=== PATIENT | female | born 1985 | race Caucasian/White ===

== ENCOUNTER → 2018-05-15 | Outpatient (CLI) | payer BC ==
[~2018-05-15] MED LIST: HYDACE5325 PO; IBUP600
== END | disposition home or self-care (01) ==
LOC: PLD 08:14 → LAB SHORT 08:14
DX: N93.8 Other specified abnormal uterine and vaginal bleeding (principal); N85.00 Endometrial hyperplasia, unspecified
CPT/HCPCS: 88305

== ENCOUNTER 2018-05-24 08:04 | Day surgery (SDC) | payer BC ==
[~2018-05-24] VITALS: Ht 165.1 cm; Wt 149.9 kg
[2018-05-24] MEDS ORDERED: METO50ER PO (08:22)
[2018-05-24] MEDS ORDERED: ERGO400 PO (08:23)
[2018-05-24] MEDS ORDERED: Lexapro20 MG PO (08:23)
[2018-05-24] MEDS ORDERED: TRAZ100 PO (08:23)
[2018-05-24] MEDS ORDERED: IRON150C PO (08:23)
[2018-05-24] MEDS ORDERED: Synthroid75 MCG PO (08:25)
[2018-05-24] MEDS ORDERED: ALPR.5 PO (08:25)
--- NOTE | 2018-05-24 08:37 | NUR ---
History, Chart, Medications and Allergies reviewed before start of procedure. Lungs clear T/O to Auscultation. Patient confirms NPO status and agrees with scheduled surgery. Patient States Post-Procedure ride home has been arranged.
--- NOTE | 2018-05-24 11:09 | NUR ---
PATIENT WITH SCANT BLOODY DRAINAGE ON PAD. PAD CHANGED. PT EDUCATION PROVIDED REGARDING WHAT TO EXPECT AT HOME. WILL REPORT TO AZIZA ALCANTARA RN FOR BREAK.
--- NOTE | 2018-05-24 11:33 | NUR ---
Discharge instructions reviewed with patient. Patient verbalizes understanding. Copy given to patient to take home.
--- NOTE | 2018-05-24 11:40 | NUR ---
PT WAS ABLE TO VOID WITHOUT DIFFICULTY. VSS. DRESSED AND Discharged via wheelchair to private car for ride home. CHANGE GAYATHRI PAD, CURRENT PAD HAD MODERATE AMOUNT OF BLOOD SPOTTING ALONG PAD, NOT SATURATED. RX'S GIVEN TO PATIENT ALONG WITH TYLER MITCHELL.
== END 2018-05-24 11:38 | disposition home or self-care (01) ==
LOC: ORSCMMR 08:04 → ORD 08:10 → ORSCMMR 08:10
PROVIDERS: Obstetrics & Gynecology
PROC: 0UDB8ZX Extraction of Endometrium, Via Natural or Artificial Opening Endoscopic, Diagnostic (ICD-10-PCS; principal; 2018-05-24 09:30)
PROC: 0UH97HZ Insertion of Contraceptive Device into Uterus, Via Natural or Artificial Opening (ICD-10-PCS; principal; 2018-05-24 09:30)
DX: N85.02 Endometrial intraepithelial neoplasia [EIN] (principal); N71.9 Inflammatory disease of uterus, unspecified; Z30.430 Encounter for insertion of intrauterine contraceptive device; I10 Essential (primary) hypertension; G47.33 Obstructive sleep apnea (adult) (pediatric); F17.210 Nicotine dependence, cigarettes, uncomplicated; E03.9 Hypothyroidism, unspecified; E66.01 Morbid (severe) obesity due to excess calories; Z68.43 Body mass index [BMI] 50.0-59.9, adult; F41.8 Other specified anxiety disorders; Z79.899 Other long term (current) drug therapy
CPT/HCPCS: 88305; A9270-GY; J1100; J1885; J2250; J2405; J2704; J3010; J7120; J7298

== ENCOUNTER → 2018-09-04 | Outpatient (CLI) | payer BC ==
[~2018-09-04] MED LIST changes: +ALPR.5 PO; +ERGO400 PO; +IRON150C PO; +Lexapro20 MG PO; +METO50ER PO; +Synthroid75 MCG PO; +TRAZ100 PO
== END | disposition home or self-care (01) ==
LOC: LAB SHORT 12:33 → PLD 12:33
DX: N85.02 Endometrial intraepithelial neoplasia [EIN] (principal); N93.8 Other specified abnormal uterine and vaginal bleeding
CPT/HCPCS: 88305